=== PATIENT | female | born 1995 | race Caucasian/White ===

== ENCOUNTER 2016-03-31 11:01 | Emergency (ER) | payer BC ==
[2016-03-31 11:45] VITALS: BP 129/74
--- NOTE | 2016-03-31 12:08 | UC ---
UC General HPI - HPI Summary HPI Summary: cough, congestion for about three weeks. she has pulmicort at home but has not been using albuterol. no fevers but she has had chills. she has hx of asthma. cough is mainly dry. - History of Current Complaint Chief Complaint: UCRespiratory Stated Complaint: COUGH,CHEST CONGESTION Time Seen by Provider: 03/31/16 11:49 Hx Obtained From: Patient Onset/Duration: Gradual Onset, Lasting Weeks Timing: Constant Onset Severity: Moderate Current Severity: Moderate - Allergy/Home Medications Allergies/Adverse Reactions: Allergies Allergy/AdvReac Type Severity Reaction Status Date / Time Erythromycin Allergy Rash Verified 03/31/16 11:45 Sulfamethoxazole Allergy Rash Verified 03/31/16 11:45 w/Trimethoprim [From ] Home Medications: Home Medications Sertraline* [Zoloft*] 50 mg PO DAILY 03/31/16 [History Confirmed 03/31/16] PMH/Surg Hx/FS Hx/Imm Hx Endocrine History Of: Denies: Diabetes Cardiovascular History Of: Denies: Hypertension, Congestive Heart Failure Respiratory History Of: Reports: Asthma GI/ History Of: Denies: Renal Disease - Surgical History Surgical History: Yes Surgery Procedure, Year, and Place: 2010 APPENDECTOMY - Family History Known Family History: Positive: Hypertension - Social History Alcohol Use: Rare Substance Use Type: None Smoking Status (MU): Never Smoked Tobacco Review of Systems Skin: Negative ENT: Negative Respiratory: Cough All Other Systems Reviewed And Are Negative: Yes Physical Exam Triage Information Reviewed: Yes Appearance: Well-Appearing, No Pain Distress, Well-Nourished Vital Signs: Initial Vital Signs Temp 98.3 F 03/31/16 11:41 Pulse 75 03/31/16 11:41 Resp 16 03/31/16 11:41 BP 129/74 03/31/16 11:41 Pulse Ox 100 03/31/16 11:41 Vital Signs Reviewed: Yes Eye Exam: Normal Eyes: Positive: Conjunctiva Clear ENT Exam: Normal Dental Exam: Normal Neck exam: Normal Neck: Positive: Supple, Nontender, No Lymphadenopathy Respiratory Exam: Normal Respiratory: Positive: Lungs clear, Normal breath sounds, No respiratory distress, Respiratory distress, Decreased breath sounds, Accessory muscle use, Expiration - prolonged expirator phase.. Negative: Crackles, Rhonchi, Stridor, Wheezing Cardiovascular: Positive: RRR, No Murmur, Pulses Normal, Brisk Capillary Refill. Negative: Tachycardia, Bradycardia Abdominal Exam: Normal Abdomen Description: Positive: Nontender Musculoskeletal Exam: Normal Musculoskeletal: Positive: Strength Intact Neurological Exam: Normal Neurological: Positive: Alert, Muscle Tone Normal. Negative: Lethargic, Unresponsive Psychological Exam: Normal Skin Exam: Normal Course/Dx - Course Course Of Treatment: prolonged bronchitis in [place] patient with hx of asthma. we will try z pack, prednisone, albuterol, spacer and otc cough and decongestant. no signs of PE or pneumonia. no resp distress. she will rtc or f/ u with pcp for any worsening. - Differential Dx - Multi-Symptom Differential Diagnoses: Aspiration, Cardiac Ischemia, Closed Cranial Trauma, CVA , Metabolic Abnormality Provider Diagnoses: uri, bronchitis. Discharge - Discharge Plan Condition: Stable Disposition: HOME Referrals: Matt Fink MD [Primary Care Provider] - If Needed
== END 2016-03-31 12:26 | disposition home or self-care (01) ==
LOC: UCCORT 11:01
DX: J06.9 Acute upper respiratory infection, unspecified (principal); J40 Bronchitis, not specified as acute or chronic; J45.909 Unspecified asthma, uncomplicated; Z88.2 Allergy status to sulfonamides; Z88.3 Allergy status to other anti-infective agents
CPT/HCPCS: 99212; G0463

== ENCOUNTER 2016-09-13 11:57 | Emergency (ER) | payer BC ==
[2016-09-13 13:14] VITALS: BP 109/73
--- NOTE | 2016-09-13 13:40 | UC ---
Throat Pain/Nasal Art HPI - HPI Summary HPI Summary: 20 female presents with complaints of sore throat, fever, body aches and fatigue that began 3 days ago and has been worsening. 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 Has been taking Tylenol with last dose being this morning around 8am that gives her some relief. States she took her temperature orally last night and it was 101F. Denies any other complaints at this time. Denies PMHx. Never previously tested or diagnosed with mono. - History of Current Complaint Chief Complaint: UCGeneralIllness Stated Complaint: THROAT Time Seen by Provider: 09/13/16 12:58 Hx Obtained From: Patient Hx Last Menstrual Period: IUD ?: No Onset/Duration: Sudden Onset, Lasting Days - 3, Worse Since Severity: Moderate Pain Intensity: 7 Pain Scale Used: 0-10 Numeric Cough: None Associated Signs & Symptoms: Positive: Dysphagia, Fever - Epiglottits Risk Factors Epiglottis Risk Factors: Negative - Allergies/Home Medications Allergies/Adverse Reactions: Allergies Allergy/AdvReac Type Severity Reaction Status Date / Time Erythromycin Allergy Rash Verified 09/13/16 13:06 Sulfamethoxazole Allergy Rash Verified 09/13/16 13:06 w/Trimethoprim [From ] Home Medications: Home Medications Venlafaxine ER (NF) [Effexor ER (NF)] 150 mg PO DAILY 09/13/16 [History Confirmed 09/13/16] cloNIDine TAB* [Catapres 0.1 MG TAB*] 1 tab BEDTIME PRN 09/13/16 [History Confirmed 09/13/16] PMH/Surg Hx/FS Hx/Imm Hx - Additional Past Medical History Additional PMH: Denies diabetes, htn and asthma. Taking venlafaxine Psychological History: Anxiety - Surgical History Surgical History: Yes Surgery Procedure, Year, and Place: 2010 APPENDECTOMY - Family History Known Family History: Positive: Hypertension - Social History Alcohol Use: None Substance Use Type: None Smoking Status (MU): Never Smoked Tobacco - Immunization History Most Recent Influenza Vaccination: 2015 Most Recent Tetanus Shot: UTD Most Recent Pneumonia Vaccination: N/A Vaccination Up to Date: Yes Review of Systems Constitutional: Fever, Chills, Fatigue Skin: Negative ENT: Ear Ache Respiratory: Negative Cardiovascular: Negative Gastrointestinal: Negative Musculoskeletal: Myalgia Neurological: Headache All Other Systems Reviewed And Are Negative: Yes Physical Exam Triage Information Reviewed: Yes Appearance: No Pain Distress, Well-Nourished, Ill-Appearing Vital Signs: Initial Vital Signs Temp 97.4 F 09/13/16 13:09 Pulse 110 09/13/16 13:09 Resp 18 09/13/16 13:09 BP 109/73 09/13/16 13:09 Pulse Ox 97 09/13/16 13:09 tachycardia noted, afebrile however patient has been experiencing symptoms x3days and is currently taking tylenol Vital Signs Reviewed: Yes Eyes: Positive: Conjunctiva Clear ENT: Positive: Hearing grossly normal, Pharyngeal erythema, TMs normal, Tonsillar swelling, Tonsillar exudate, Other: - airway patent, no sign of peritonsillar abscess, no concern for epiglottits. Negative: Nasal congestion, Trismus, Muffled/hoarse voice Dental: Positive: Cervical Lymphadenopathy - b/l Neck: Positive: Supple, Nontender Respiratory: Positive: Chest non-tender, Lungs clear, Normal breath sounds, No respiratory distress, No accessory muscle use. Negative: Decreased breath sounds, Crackles, Wheezing Cardiovascular: Positive: RRR, No Murmur, Pulses Normal Abdomen Description: Positive: Nontender, Soft Bowel Sounds: Positive: Present Musculoskeletal: Positive: Strength Intact, ROM Intact Neurological Exam: Normal Psychological Exam: Normal Skin Exam: Normal Throat Pain/Nasal Course/Dx - Course Course Of Treatment: strep obtained and negative. however due to patients PE findings and HPI and according to centor criteria treated with amoxicillin. continue tylenol. fluids and rest. follow up pcp. monospot obtained, pending results. aware of worsening signs and symptoms. - Differential Dx/Diagnosis Differential Diagnosis/HQI/PQRI: Mononucleosis, Otitis Media, Pharyngitis, Tonsillitis, URI Provider Diagnoses: pharyngitis Discharge - Discharge Plan Condition: Stable Disposition: HOME Prescriptions: Amoxicillin CAP* [Amoxicillin 500 MG CAP*] 500 mg PO Q12H #20 cap Patient Education Materials: Pharyngitis (ED) Forms: *Work Release Referrals: Matt Fink MD [Primary Care Provider] - Additional Instructions: Take prescribed antibiotic as directed until entire dose is finished unless otherwise directed. You will hear mono results once received. Continue tylenol for pain and fever. Drink plenty of fluids, get plenty of rest, chloraseptic spray and gargle with salt water. Wash hands frequently. Follow up with PCP. Return if symptoms worsen or do not improve.
[2016-09-13 18:40] LABS: EBV Response YES
[2016-09-13 20:26] LABS: Mono Internal Control QC Line Present
[2016-09-13 20:27] LABS: Manual Entry Verification MD
== END 2016-09-13 14:08 | disposition home or self-care (01) ==
LOC: UCCORT 11:57
DX: J02.9 Acute pharyngitis, unspecified (principal); M79.1 Myalgia; R50.9 Fever, unspecified; R53.83 Other fatigue; Z88.1 Allergy status to other antibiotic agents; Z88.2 Allergy status to sulfonamides; F41.9 Anxiety disorder, unspecified
CPT/HCPCS: 36415; 86308; 86664; 86665; 87651; 99212; G0463

== ENCOUNTER 2017-01-26 09:20 | Emergency (ER) | payer BC ==
[2017-01-26 09:36] VITALS: BP 122/65
--- NOTE | 2017-01-26 09:55 | UC ---
Eye Complaint HPI - HPI Summary HPI Summary: pink eye bilateral x 1 day cold sx, with nasal congestion , cough x 5 days no fever, no chills + eye discharge and redness, no eye pain ,no change in vision , had her contacts over night - History of Current Complaint Chief Complaint: UCEye Stated Complaint: EYE COMPLAINT BOTH Time Seen by Provider: 01/26/17 09:45 Hx Obtained From: Patient Hx Last Menstrual Period: IUD Onset/Duration: Gradual Onset, Lasting Days - 1, Still Present Timing: Constant Severity Initially: Moderate Severity Currently: Moderate Location of Injury: Conjunctiva Aggravating Factor(s): Contact Lens Alleviating Factor(s): Nothing Associated Signs And Symptoms: Positive: Drainage (Clear), Drainage (Purulent). Negative: Photophobia, Vision Impairment Bilateral, Vision Impairment Right, Vision Impairment Left, Fever, Swelling - Allergies/Home Medications Allergies/Adverse Reactions: Allergies Allergy/AdvReac Type Severity Reaction Status Date / Time Erythromycin Allergy Rash Verified 01/26/17 09:36 Sulfamethoxazole Allergy Rash Verified 01/26/17 09:36 w/Trimethoprim [From ] PMH/Surg Hx/FS Hx/Imm Hx Previously Healthy: Yes - Surgical History Surgical History: Yes Surgery Procedure, Year, and Place: 2010 APPENDECTOMY - Family History Known Family History: Positive: Hypertension - Social History Alcohol Use: None Substance Use Type: None Smoking Status (MU): Never Smoked Tobacco - Immunization History Most Recent Influenza Vaccination: 2015 Most Recent Tetanus Shot: UTD Most Recent Pneumonia Vaccination: N/A Vaccination Up to Date: Yes Review of Systems Constitutional: Negative Skin: Negative Eyes: Drainage, Eye Redness ENT: Nasal Discharge Respiratory: Negative Cardiovascular: Negative Gastrointestinal: Negative Is Patient Immunocompromised?: No All Other Systems Reviewed And Are Negative: Yes Physical Exam Triage Information Reviewed: Yes Appearance: Well-Appearing, No Pain Distress, Well-Nourished Vital Signs: Initial Vital Signs Temp 98.2 F 01/26/17 09:31 Pulse 81 01/26/17 09:31 Resp 20 01/26/17 09:31 BP 122/65 01/26/17 09:31 Vital Signs Reviewed: Yes Eyes: Positive: Conjunctiva Inflamed - bilateral, Discharge - bilateral ENT: Positive: Normal ENT inspection, Hearing grossly normal, Pharynx normal, Pharyngeal erythema, Nasal congestion, TMs normal. Negative: Nasal drainage Neck: Positive: Supple, Nontender, No Lymphadenopathy Respiratory: Positive: Chest non-tender, Lungs clear, Normal breath sounds Cardiovascular Exam: Normal Cardiovascular: Positive: RRR, No Murmur, Pulses Normal Eye Complaint Course/Dx - Differential Dx/Diagnosis Provider Diagnoses: conjunctivitis bilateral Discharge - Discharge Plan Condition: Stable Disposition: HOME Prescriptions: Ciprofloxacin 0.3% OPTH.LORE* [Cipro 0.3% Opth*] 1 drop BOTH EYES Q2H #1 btl Patient Education Materials: Conjunctivitis (ED) Referrals: Matt Fink MD [Primary Care Provider] - 7 Days
== END 2017-01-26 09:53 | disposition home or self-care (01) ==
LOC: UCCORT 09:20
DX: H10.33 Unspecified acute conjunctivitis, bilateral (principal); Z88.1 Allergy status to other antibiotic agents; Z88.2 Allergy status to sulfonamides
CPT/HCPCS: 99212; G0463

== ENCOUNTER 2017-02-09 14:03 | Emergency (ER) | payer BC ==
[2017-02-09 14:13] VITALS: BP 108/72
--- NOTE | 2017-02-09 14:15 | UC ---
Eye Complaint HPI - HPI Summary HPI Summary: 21 y/o female presents to the urgent care c/o B/L redness with yellowish eye discharge since yesterday. Pt reports she has Dx with B/L conjunctivitis on 01/26/2017, Rx Ciprofloxacin, her eyes were completely clear for a couple of days. Yesterday she woke up with yellowish crusting d/c. She still with nasal congestion and mild cold symptoms and B/L ear pressure. Pt denies fever, cough , SOB, chest pain, N/V/D - History of Current Complaint Chief Complaint: UCEye Stated Complaint: BILATERAL EYE Time Seen by Provider: 02/09/17 14:13 Hx Obtained From: Patient Hx Last Menstrual Period: unknown, guerita IUD ?: No Onset/Duration: Gradual Onset, Lasting Days - 2 days, Still Present Timing: Constant Severity Initially: Mild Severity Currently: Mild Pain Intensity: 0 Pain Scale Used: 0-10 Numeric Location of Injury: Conjunctiva - B/L redness with yellowish eye discharge Character: Foreign Body Sensation Aggravating Factor(s): Blinking Alleviating Factor(s): Eye Drops Associated Signs And Symptoms: Positive: Drainage (Purulent). Negative: Fever, Swelling Related History: Similar Episode - 01/26/2017 - Risk Factors Penetrating Injury Risk Factor: Negative Globe Rupture Risk Factors: Negative Acute Glaucoma Risk Factors: Negative Optic Artery Occlusion Risk Factors: Negative - Allergies/Home Medications Allergies/Adverse Reactions: Allergies Allergy/AdvReac Type Severity Reaction Status Date / Time Erythromycin Allergy Rash Verified 02/09/17 14:13 Sulfamethoxazole Allergy Rash Verified 02/09/17 14:13 w/Trimethoprim [From ] PMH/Surg Hx/FS Hx/Imm Hx Previously Healthy: Yes Respiratory History: Asthma - Surgical History Surgical History: Yes Surgery Procedure, Year, and Place: 2010 APPENDECTOMY - Family History Known Family History: Positive: Hypertension, Diabetes - Social History Occupation: Student Lives: With Family Alcohol Use: None Substance Use Type: None Smoking Status (MU): Never Smoked Tobacco - Immunization History Most Recent Influenza Vaccination: no Most Recent Tetanus Shot: UTD Most Recent Pneumonia Vaccination: N/A Vaccination Up to Date: Yes Review of Systems Constitutional: Negative Skin: Negative Eyes: Eye Redness - B/L with yellowish eye discharge ENT: Ear Ache - B/L ear pressure, Nasal Discharge Respiratory: Negative Cardiovascular: Negative Gastrointestinal: Negative Genitourinary: Negative Motor: Negative Neurovascular: Negative Musculoskeletal: Negative Neurological: Negative Psychological: Negative Is Patient Immunocompromised?: No All Other Systems Reviewed And Are Negative: Yes Physical Exam Triage Information Reviewed: Yes Vital Signs: Initial Vital Signs Temp 98.6 F 02/09/17 14:07 Pulse 78 02/09/17 14:07 Resp 14 02/09/17 14:07 BP 108/72 02/09/17 14:07 Pulse Ox 98 02/09/17 14:07 - Additional Comments Vital Signs Reviewed: Yes General: Well appearing, well nourished adolescent in no apparent pain distress Eyes: Positive: Conjunctiva Inflamed - Visual acuity: WNL,Visual stone: full to confrontation.B/L conjunctiva injected with erythema and yellowish crusting eye discharge in the eye lashes. no periorbital soft tissue swelling , no tenderness to palpation. PERRLA, EOMI intact w/out limitation or complaint of pain. mild tearing and yellowish drainage observed. No ciliary flush. No chemosis, No photophobia. Normal fundoscopic exam; no proptosis, exophthalmos, nystagmus. ENT: Positive: Normal ENT inspection, Hearing grossly normal, Pharynx normal, Nasal congestion, Nasal drainage - B/L external ear canal impacted with cerumen unable to visualize TM's . Negative: Tonsillar swelling, Tonsillar exudate Neck: Positive: Supple, Nontender, No Lymphadenopathy Respiratory: Positive: Chest nontender, Lungs clear, Normal breath sounds, No respiratory distress Cardiovascular: Positive: RRR, No Murmur, Pulses Normal, Brisk Capillary Refill Abdomen Description: Positive: Nontender, No Organomegaly, Soft. Negative: CVA Tenderness (R), CVA Tenderness (L) Bowel Sounds: Positive: Present Musculoskeletal: Positive: Strength Intact, ROM Intact, No Edema Neurological Exam: Normal Psychological Exam: Normal Skin Exam: Normal Eye Complaint Course/Dx - Course Course Of Treatment: 21 y/o female presents to the urgent care c/o B/L redness with yellowish eye discharge since yesterday. Pt reports she has Dx with B/L conjunctivitis on 01/26/2017, Rx Ciprofloxacin, her eyes were completely clear for a couple of days. Yesterday she woke up with yellowish crusting d/c. She still with nasal congestion and mild cold symptoms and B/L ear pressure. Pt denies fever, cough, SOB, chest pain, N/V/D. Hx obtained. Pt with B/L bacterial conjunctivitis and B/L exteranl ear canals with cerumen impaction and URI on examination. B/L ears irrigation ordered. RT external ear canal clear after irrigation. Lf erternal ear still with hard black cerumen, Decusate liq 5 drops ordere to soften cerumen and ear irrigation tried again by Nurse. No succes with irri - Differential Dx/Diagnosis Differential Diagnosis/HQI/PQRI: Conjunctivitis, Corneal Abrasion, Orbital Cellulitis, Other - sinustitis, URI, pharyngitis, cerumen impaction Provider Diagnoses: 1- B/L bacterial conjunctivitis. 2-B/L ears with cerumen impaction. 3- URI Discharge - Discharge Plan Condition: Stable Disposition: HOME Prescriptions: Carbamide Peroxide 6.5% OTIC* [DEBROX 6.5% Otic*] 5 drop LEFT EAR BID #1 bottle Tobramycin/Dexameth OPTH.SUSP* [Tobradex 0.3-0.1%*] 1 drop BOTH EYES Q4H #1 btl Patient Education Materials: Cerumen Impaction (ED), Conjunctivitis (ED) Referrals: Wong Owens MD [Medical Doctor] - If Needed Matt Fink MD [Primary Care Provider] - If Needed Mc Abdalla MD [Medical Doctor] - If Needed Additional Instructions: 1-Please apply ophthalmic ointment as instructed and finish the full course of treatment to avoid recurrent infection. 2-If you do not improve or if symptoms worsen please f/u with spine surgeon for further evaluation and treatment 3- Apply otic drops in the left ear as directed to soften cerumen. If nothing comes out please f/u with PCP or ENT for further management.
[2017-02-09] MEDS ORDERED: Docusate LIQ* 100 MG/10 ML UDC ONE ×2 (15:16→15:18)
[2017-02-09] MEDS ORDERED: Docusate LIQ* 100 MG/10 ML UDC OTIC ONE (15:22)
[2017-02-10] MEDS ORDERED: Docusate LIQ* 100 MG/10 ML UDC PO ONE (15:12)
== END 2017-02-09 15:48 | disposition home or self-care (01) ==
LOC: UCCORT 14:03
DX: H10.33 Unspecified acute conjunctivitis, bilateral (principal); H61.23 Impacted cerumen, bilateral; J06.9 Acute upper respiratory infection, unspecified; J45.909 Unspecified asthma, uncomplicated; Z88.1 Allergy status to other antibiotic agents; Z88.2 Allergy status to sulfonamides; Z90.89 Acquired absence of other organs
CPT/HCPCS: 99213; A9270-GY; G0463

== ENCOUNTER 2017-06-25 18:44 | Emergency (ER) | payer BC ==
--- NOTE | 2017-06-25 19:48 | ED ---
Abdominal Pain/Female - HPI Summary HPI Summary: Pt presents to ED with n/v starting 1 hour following eating [employer] for lunch. Pt then developed diarrhea. Pt states vomit queen - non-bloody, no- blacl. pt states abdominal cramping. no analgesia taken. no fever, chills. no jacques , vision changes. Pt denies dysuria, hematuria, No rash. No other complaints pt's medication reviewed this visit - History of Current Complaint Chief Complaint: UCAbdominalPain Stated Complaint: STOMACH ACHE,VOMITING,DIARRHEA Time Seen by Provider: 06/25/17 19:33 Hx Obtained From: Patient Hx Last Menstrual Period: 2 WKS AGO Onset/Duration: Sudden Onset Timing: Intermittent Episode Lasting Severity Initially: Moderate Pain Intensity: 5 Pain Scale Used: 0-10 Numeric Location: Diffuse, Epigastric Radiates: No Character: Sharp, Cramping Aggravating Factor(s): Nothing Alleviating Factor(s): Vomiting, Bowel Movement Associated Signs and Symptoms: Positive: Nausea, Vomiting, Diarrhea Allergies/Adverse Reactions: Allergies Allergy/AdvReac Type Severity Reaction Status Date / Time erythromycin base Allergy Rash Verified 06/25/17 19:12 sulfamethoxazole Allergy Rash Verified 06/25/17 19:12 [From ] trimethoprim [From ] Allergy Rash Verified 06/25/17 19:12 Home Medications: Home Medications Albuterol HFA INHALER* [Ventolin HFA Inhaler*] 2 puff INH Q4H PRN 06/25/17 [ History Confirmed 06/25/17] PMH/Surg Hx/FS Hx/Imm Hx Previously Healthy: Yes Endocrine/Hematology History: Denies: Hx Diabetes, Hx Systemic Lupus Erythematosus Cardiovascular History: Denies: Hx Congestive Heart Failure, Hx Hypertension Respiratory History: Reports: Hx Asthma History: Denies: Hx Dialysis, Hx Renal Disease Musculoskeletal History: Denies: Hx Rheumatoid Arthritis - Cancer History Hx Chemotherapy: No - Surgical History Surgery Procedure, Year, and Place: 2010 APPENDECTOMY Infectious Disease History: No Infectious Disease History: Denies: Traveled Outside the [place] in Last 30 Days - Family History Known Family History: Positive: Hypertension, Diabetes - Social History Occupation: Employed Full-time Lives: Alone Alcohol Use: Rare Substance Use Type: Reports: None Smoking Status (MU): Never Smoked Tobacco Review of Systems Constitutional: Negative Eyes: Negative Positive: Abdominal Pain, Vomiting, Diarrhea, Nausea All Other Systems Reviewed And Are Negative: Yes Physical Exam Triage Information Reviewed: Yes Vital Signs On Initial Exam: Initial Vitals Temp Pulse Resp BP Pulse Ox 98.5 F 75 16 110/75 99 06/25/17 19:16 06/25/17 19:16 06/25/17 19:16 06/25/17 19:16 06/25/17 19:16 Vital Signs Reviewed: Yes Appearance: Positive: Well-Nourished. Negative: No Pain Distress - active vomiting and diarrhea in ED Skin: Positive: Warm, Skin Color Reflects Adequate Perfusion, Dry Head/Face: Positive: Normal Head/Face Inspection Eyes: Positive: Normal, EOMI, VASILIY ENT: Positive: TMs normal, Other - lips dry, mmmoist Neck: Positive: Supple, Nontender, No Lymphadenopathy Respiratory/Lung Sounds: Positive: Clear to Auscultation, Breath Sounds Present , Decreased Breath Sounds Cardiovascular: Positive: Normal, RRR. Negative: Murmur Abdomen Description: Positive: Soft. Negative: Nontender - soft + BS-hyper mild diffuse tenderness, no guarding, no rebound Bowel Sounds: Positive: Hyperactive Musculoskeletal: Positive: Normal Neurological: Positive: Normal, Sensory/Motor Intact, Alert, Oriented to Person Place, Time Psychiatric: Positive: Normal AVPU Assessment: Alert - [place] Coma Scale Best Eye Response: 4 - Spontaneous Best Motor Response: 6 - Obeys Commands Best Verbal Response: 5 - Oriented Coma Scale Total: 15 Diagnostics - Vital Signs Vital Signs Temp Pulse Resp BP Pulse Ox 06/25/17 19:16 98.5 F 75 16 110/75 99 - Laboratory Lab Statement: Any lab studies that have been ordered have been reviewed, and results considered in the medical decision making process. Re-Evaluation - Re-Evaluation First Eval Re-Evaluation Time: 20:42 Comment: pt continues with nausea, slight improvement. pt with cramping abdominal pain. spoke with mom by phone. will give IVF, toradol, zofran. pt in agreement Second Eval Re-Evaluation Time: 21:41 Change: Improved Comment: Pt feeling better. no nausea eating ice chips. Will d/c with Rx zofran and 2 tabs. motrin/apap. clears to bland. return precautiins Abdominal Pain Fem Course/Dx - Course Course Of Treatment: Pt with sudden development of n/v with rapid progression of diarrhea following a meal. 3 co-workers with similar sx. Pt with vomit and diarrhea in UC. offered IVF to pt - declined at this time. Will give zofran and ice chips. reassess - Diagnoses Provider Diagnoses: Nausea & vomiting, Diarrhea Discharge - Sign-Out/Discharge Documenting (check all that apply): Discharge - Discharge Plan Condition: Stable Disposition: HOME Prescriptions: Ondansetron ODT TAB* [Zofran 4 MG Odt TAB*] 4 mg PO Q6H PRN #10 tab.odt PRN Reason: Nausea Patient Education Materials: Acute Nausea and Vomiting (ED), Acute Diarrhea (ED ) Forms: *Work Release Referrals: Matt Fink MD [Primary Care Provider] - Additional Instructions: - For the first 6 hours, eat and drink clears (water, [place], soup broth, jello, popsicles, Gatorade). If you tolerate this okay, add bland foods such as dry toast, scrambled eggs, crackers. Wait until you are feeling better for 24 hours before eating spicy food, acidic food, tomato based food, fried food. - okay to take medications as prescribed for nausea - if you have increased or uncontrolled abdominal pain, it is recommended you go to the emergency department for further evaluation and treatment - Billing Disposition and Condition Condition: STABLE Disposition: HOME
[2017-06-25] MEDS ORDERED: Ondansetron ODT TAB* 4 MG PO ONE ×2 (19:53→21:11)
[2017-06-25] MEDS ORDERED: Ondansetron INJ* 2 MG/ML VIAL IV ONE (20:40)
[2017-06-25] MEDS ORDERED: Ketorolac INJ* 30 MG/ML 1 ML VIAL IV PUSH ONE (20:40)
[2017-06-25] MEDS ORDERED: NS 0.9% 1000 ML* 1,000 ML IV ONE (20:40)
[2017-06-25 22:10] VITALS: BP 130/77
== END 2017-06-25 22:10 | disposition home or self-care (01) ==
LOC: UCCORT 18:44
DX: R11.2 Nausea with vomiting, unspecified (principal); R19.7 Diarrhea, unspecified; Z88.3 Allergy status to other anti-infective agents; Z88.8 Allergy status to other drugs, medicaments and biological substances
CPT/HCPCS: 96361; 96374; 96375; 99213; A9270-GY; G0463; J1885; J2405

== ENCOUNTER 2017-11-05 11:12 | Emergency (ER) | payer BC ==
[2017-11-05 11:54] VITALS: BP 121/75
--- NOTE | 2017-11-05 12:18 | UC ---
Respiratory Complaint HPI - HPI Summary HPI Summary: 22 year old female presents with 5-6 day history of progressively worsening URI symptoms. She reports initially developed some nausea, vomiting, and diarrhea about 1 week ago while on vacation in [place]. These symptoms resolved after about 3 days however she then began developing nasal congestion, sinus pain and pressure, mild sore throat, and non-productive cough. Reports onset of low grade fever last night and this morning (100 F). Last night was having difficulty breathing especially when she tried to lie down. Has history of asthma however is currently out of her albuterol inhaler. - History of Current Complaint Chief Complaint: UCGeneralIllness Stated Complaint: CONGESTION Time Seen by Provider: 11/05/17 11:58 Hx Obtained From: Patient Hx Last Menstrual Period: last week ?: No - LMP 1 week ago. Currently not sexually active. Onset/Duration: Gradual Onset Timing: Constant Severity Initially: Mild Severity Currently: Moderate Pain Intensity: 4 Aggravating Factors: Nothing Alleviating Factors: Nothing Associated Signs And Symptoms: Positive: Dyspnea, Fever, URI, Nasal Congestion, Sinus Discomfort. Negative: Pleuritic Chest Pain, Hemoptysis, Calf Pain, Calf Swelling - Risk Factors Pulmonary Embolism Risk Factors: Negative - Allergies/Home Medications Allergies/Adverse Reactions: Allergies Allergy/AdvReac Type Severity Reaction Status Date / Time erythromycin base Allergy Rash Verified 11/05/17 11:44 sulfamethoxazole Allergy Rash Verified 11/05/17 11:44 [From ] trimethoprim [From ] Allergy Rash Verified 11/05/17 11:44 Home Medications: Home Medications Benzonatate CAP* [Tessalon 100 MG CAP*] 100 mg PO BID PRN 11/05/17 [History Confirmed 11/05/17] Decongestant 1 tab PO DAILY PRN 11/05/17 [History Confirmed 11/05/17] Dm/PE/Acetaminophen/Doxylamine [Daytime-Nighttime Cold-Flu] 2 each PO BID PRN [History Confirmed 11/05/17] Ibuprofen TAB* [Advil TAB*] 600 mg PO Q6H PRN 11/05/17 [History Confirmed ] PMH/Surg Hx/FS Hx/Imm Hx Previously Healthy: Yes Respiratory History: Asthma - Surgical History Surgical History: Yes Surgery Procedure, Year, and Place: 2010 APPENDECTOMY - Family History Known Family History: Positive: Hypertension, Diabetes - Social History Occupation: Employed Full-time - [employer] Work[employer] Lives: With Family Alcohol Use: Rare Substance Use Type: None Smoking Status (MU): Never Smoked Tobacco - Immunization History Most Recent Influenza Vaccination: no Most Recent Tetanus Shot: UTD Most Recent Pneumonia Vaccination: N/A Vaccination Up to Date: Yes Review of Systems Constitutional: Fever, Fatigue Skin: Negative Eyes: Negative ENT: Sore Throat, Nasal Discharge, Sinus Congestion, Sinus Pain/Tenderness Respiratory: Shortness Of Breath, Cough Cardiovascular: Negative Gastrointestinal: Negative Is Patient Immunocompromised?: No All Other Systems Reviewed And Are Negative: Yes Physical Exam Triage Information Reviewed: Yes Appearance: Well-Appearing, No Pain Distress, Well-Nourished Vital Signs: Initial Vital Signs Temp 98.7 F 11/05/17 11:48 Pulse 68 11/05/17 11:48 Resp 14 11/05/17 11:48 BP 121/75 11/05/17 11:48 Pulse Ox 98 11/05/17 11:48 Vital Signs Reviewed: Yes Eyes: Positive: Conjunctiva Clear ENT: Positive: Pharyngeal erythema - Mild with cobblestoning., Nasal congestion , Nasal drainage, TMs normal, Sinus tenderness - Maxillary, Uvula midline. Negative: Tonsillar swelling, Tonsillar exudate Neck: Positive: Supple, Nontender, No Lymphadenopathy Respiratory: Positive: No respiratory distress, No accessory muscle use, Wheezing - Mild expiratory wheeze MARVA Cardiovascular: Positive: RRR, No Murmur, Pulses Normal Skin Exam: Normal UC Diagnostic Evaluation - Laboratory O2 Sat by Pulse Oximetry: 98 Respiratory Course/Dx - Course Course Of Treatment: 22 year old female presents with 5-6 day history of progressively worsening URI symptoms. She initially had some nausea, vomiting, and diarrhea about 1 week ago while on vacation. These symptoms resolved however began developing nasal congestion, sinus pain and pressure, mild sore throat, and non-productive cough. Reports low grade fever last night and this morning (100 F). Difficulty breathing especially while lying down. Has hx of asthma however is out of her albuterol inhaler. Will treat for acute URI with 7 day course of doxycycline especially in light of her underlying asthma. Recommend saline rinses, fluticasone nasal spray, and OTC Sudafed for nasal/ sinus congestion. Probiotics while on antibiotics. I will renew her albuterol inhaler. Follow up with PCP in 5 days if no improvement. - Differential Dx/Diagnosis Differential Diagnosis/HQI/PQRI: Asthma, Bronchitis, Lower Resp Infection, Sinusitis Provider Diagnoses: Acute URI, Mild intermittent asthma Discharge - Sign-Out/Discharge Documenting (check all that apply): Patient Departure - Discharge Plan Condition: Stable Disposition: HOME Prescriptions: Albuterol HFA INHALER* [Ventolin HFA Inhaler*] 2 puff INH Q4H PRN #1 mdi PRN Reason: Shortness Of Breath DOXYcycline CAP(*) [DOXYcycline 100MG CAP(*)] 100 mg PO BID #14 cap Fluticasone NASAL SPRAY 50MCG* [Flonase NASAL SPRAY 50MCG*] 2 spray BOTH NARES DAILY #1 btl Patient Education Materials: Asthma (ED), Upper Respiratory Infection (ED) Forms: *Work Release Referrals: Matt Fink MD [Primary Care Provider] - 5 Days (If no improvement.) Additional Instructions: Start doxycycline 1 cap twice daily for 7 days. Be sure to finish the entire course even if you are feeling better. Take a probiotic or eat a cup of yogurt every day while on the antibiotic to help prevent gastrontestinal side effects of the antibiotic. Use fluticasone (Flonase) nasal spray 2 sprays each nostril once daily. Use saline irrigation such as Neti Pot twice daily to help thin secretions and promote drainage. Take over the counter Sudafed according to directions as needed for sinus pain and pressure. Use over the counter acetaminophen (Tylenol) or ibuprofen (Advil, Motrin) according to directions as needed for pain or fever. Use your albuterol inhaler 2 puffs every 4-6 hours as needed for shortness of breath, wheezing, or coughing fits. Follow up with your primary care provider in 5 days if no improvement. - Billing Disposition and Condition Condition: STABLE Disposition: Home
== END 2017-11-05 12:37 | disposition home or self-care (01) ==
LOC: UCCORT 11:12
DX: J06.9 Acute upper respiratory infection, unspecified (principal); J45.909 Unspecified asthma, uncomplicated; Z88.1 Allergy status to other antibiotic agents
CPT/HCPCS: 99212; G0463

== ENCOUNTER 2018-10-08 15:20 | Emergency (ER) | payer OTHER ==
[2018-10-08 15:50] VITALS: BP 114/69
--- NOTE | 2018-10-08 16:28 | UC ---
Eye Complaint HPI - HPI Summary HPI Summary: 22-year-old female comes in with chief complaint of left eye irritation and drainage. Symptoms started today. Patient does have contacts. Left eye feels irritated but it's not painful. She is getting some yellow discharge - History of Current Complaint Chief Complaint: UCEye Stated Complaint: BILATERAL EYE ISSUE Time Seen by Provider: 10/08/18 16:17 Hx Last Menstrual Period: ~about a month ago Pain Intensity: 0 - Allergies/Home Medications Allergies/Adverse Reactions: Allergies Allergy/AdvReac Type Severity Reaction Status Date / Time erythromycin base Allergy Rash Verified 10/08/18 15:44 sulfamethoxazole Allergy Rash Verified 10/08/18 15:44 [From ] trimethoprim [From ] Allergy Rash Verified 10/08/18 15:44 Home Medications: Home Medications Ondansetron TAB* [Zofran 4 MG Tab*] 4 mg PO Q6H PRN 10/08/18 [History Confirmed 10/08/18] PMH/Surg Hx/FS Hx/Imm Hx Previously Healthy: Yes - Surgical History Surgical History: Yes Surgery Procedure, Year, and Place: 2010 APPENDECTOMY - Family History Known Family History: Positive: Hypertension, Diabetes - Social History Alcohol Use: Rare Substance Use Type: None Smoking Status (MU): Never Smoked Tobacco Type: eCigarettes Have You Smoked in the Last Year: No - Immunization History Most Recent Influenza Vaccination: no Most Recent Tetanus Shot: UTD Most Recent Pneumonia Vaccination: N/A Vaccination Up to Date: Yes Review of Systems All Other Systems Reviewed And Are Negative: Yes Constitutional: Positive: Negative Skin: Positive: Negative Eyes: Positive: Drainage, Eye Redness ENT: Positive: Negative Respiratory: Positive: Negative Cardiovascular: Positive: Negative Gastrointestinal: Positive: Negative Motor: Positive: Negative Neurovascular: Positive: Negative Musculoskeletal: Positive: Negative Neurological: Positive: Negative Psychological: Positive: Negative Is Patient Immunocompromised?: No Physical Exam Triage Information Reviewed: Yes Appearance: Well-Appearing, No Pain Distress, Well-Nourished Vital Signs: Initial Vital Signs Temp 98.1 F 10/08/18 15:45 Pulse 83 10/08/18 15:45 Resp 16 10/08/18 15:45 BP 114/69 10/08/18 15:45 Pulse Ox 100 10/08/18 15:45 Vital Signs Reviewed: Yes Eyes: Positive: Conjunctiva Inflamed - LEFT, Discharge - LEFT, Other: - PERRLA/ EOMI,NO FB SEEN,NO HYPHEMA ENT: Negative: Nasal congestion, Nasal drainage Neck: Positive: Supple Respiratory: Positive: No respiratory distress Musculoskeletal Exam: Normal Musculoskeletal: Positive: Strength Intact, ROM Intact Neurological Exam: Normal Neurological: Positive: Alert, Muscle Tone Normal Psychological Exam: Normal Psychological: Positive: Normal Response To Family, Age Appropriate Behavior Skin Exam: Normal Eye Complaint Course/Dx - Course Course Of Treatment: We discussed keeping her contact lenses out and discarding of this pair while taking the antibiotic drops. Patient is not this point contacts back in until completely healed up. Follow-up with ophthalmology if not improving. - Differential Dx/Diagnosis Provider Diagnosis: Conjunctivitis, left eye Discharge - Sign-Out/Discharge Documenting (check all that apply): Patient Departure All imaging exams completed and their final reports reviewed: No Studies - Discharge Plan Condition: Stable Disposition: HOME Prescriptions: Tobramycin 0.3% OPHTH.LORE* 1 drop LEFT EYE Q4H #1 btl Patient Education Materials: Conjunctivitis (ED) Forms: *Work Release Referrals: Matt Fink MD [Primary Care Provider] - Additional Instructions: FOLLOW UP WITH YOUR REGIONAL FACILITIES MANAGER IF NOT COMPLETELY IMPROVED. GET REEVALUATED SOONER IF WORSE OR ANY QUESTIONS OR CONCERNS. - Billing Disposition and Condition Condition: STABLE Disposition: Home
== END 2018-10-08 16:36 | disposition home or self-care (01) ==
LOC: UCCORT 15:20
DX: H10.9 Unspecified conjunctivitis (principal); F17.290 Nicotine dependence, other tobacco product, uncomplicated
CPT/HCPCS: 99212; G0463

== ENCOUNTER 2018-11-25 13:52 | Emergency (ER) | payer BC, OTHER ==
[2018-11-25 15:00] VITALS: BP 106/73
[2018-11-25] MEDS ORDERED: Ondansetron ODT TAB* 4 MG PO ONE (15:25)
--- NOTE | 2018-12-01 20:27 | UC ---
Abdominal Pain Female HPI - HPI Summary HPI Summary: Nausea, vomitting, upper abdominal pain, diarrhea, and hot/cold chills (but no fever) x3 days. Able to keep small amts of fluids/ice chips down, but not food. Last emesis today 1430. Tried pepto w/ no relief and unable to keep pepto down. - History of Current Complaint Chief Complaint: UCGI Stated Complaint: NAUSEA,CHILLS,VOMITTING,DIARRHEA X 3 DAYS Time Seen by Provider: 11/25/18 15:03 Hx Obtained From: Patient Hx Last Menstrual Period: 11/12/18 ?: No Pain Intensity: 7 Pain Scale Used: 0-10 Numeric Allergies/Adverse Reactions: Allergies Allergy/AdvReac Type Severity Reaction Status Date / Time erythromycin base Allergy Rash Verified 11/25/18 14:54 sulfamethoxazole Allergy Rash Verified 11/25/18 14:54 [From ] trimethoprim [From ] Allergy Rash Verified 11/25/18 14:54 PMH/Surg Hx/FS Hx/Imm Hx Previously Healthy: Yes - Surgical History Surgical History: Yes Surgery Procedure, Year, and Place: 2010 APPENDECTOMY - Family History Known Family History: Positive: Hypertension, Diabetes - Social History Alcohol Use: Rare Substance Use Type: None Smoking Status (MU): Current Every Day Smoker Type: eCigarettes Have You Smoked in the Last Year: No - Immunization History Most Recent Influenza Vaccination: no Most Recent Tetanus Shot: UTD Most Recent Pneumonia Vaccination: N/A Vaccination Up to Date: Yes Review of Systems All Other Systems Reviewed And Are Negative: Yes Constitutional: Positive: Chills, Fatigue Skin: Positive: Negative Eyes: Positive: Negative ENT: Positive: Negative Respiratory: Positive: Negative Gastrointestinal: Positive: Abdominal Pain Genitourinary: Positive: Negative Motor: Positive: Negative Neurovascular: Positive: Negative Musculoskeletal: Positive: Negative Neurological: Positive: Negative Psychological: Positive: Negative Is Patient Immunocompromised?: No Physical Exam Triage Information Reviewed: Yes Appearance: Well-Nourished, Ill-Appearing, Pain Distress Vital Signs: Initial Vital Signs Temp 98.2 F 11/25/18 14:55 Pulse 81 11/25/18 14:55 Resp 16 11/25/18 14:55 BP 106/73 11/25/18 14:55 Pulse Ox 98 11/25/18 14:55 Vital Signs Reviewed: Yes Eye Exam: Normal ENT Exam: Normal Dental Exam: Normal Neck exam: Normal Respiratory Exam: Normal Cardiovascular Exam: Normal Abdomen Description: Positive: Nontender, No Organomegaly, Soft, CVA Tenderness (R) - neg, CVA Tenderness (L) - neg Bowel Sounds: Positive: Present Musculoskeletal Exam: Normal Neurological Exam: Normal Psychological Exam: Normal Skin Exam: Normal Abd Pain Female Course/Dx - Course Course Of Treatment: hx obtained, exam performed ,meds reviewed, treated for gastroenteritis - Differential Dx/Diagnosis Differential Diagnosis: Constipation, Diverticulitis Provider Diagnosis: Gastroenteritis Discharge ED - Sign-Out/Discharge Documenting (check all that apply): Patient Departure All imaging exams completed and their final reports reviewed: No Studies - Discharge Plan Condition: Stable Disposition: HOME Prescriptions: Ondansetron ODT TAB* [Zofran 4 MG Odt TAB*] 4 mg PO Q8H PRN #12 tab.odt PRN Reason: Nausea Patient Education Materials: Gastroenteritis (ED) Forms: *Work Release Referrals: Matt Fink MD [Primary Care Provider] - Additional Instructions: 1. get plenty of rest 2. BLand diet 3. Use the zofran and increase fluids to prevent dehydration. 4. follow up if you develop any worsening symtpoms - Billing Disposition and Condition Condition: STABLE Disposition: Home
== END 2018-11-25 15:47 | disposition home or self-care (01) ==
LOC: UCCORT 13:52
DX: K52.9 Noninfective gastroenteritis and colitis, unspecified (principal); Z90.89 Acquired absence of other organs; Z88.1 Allergy status to other antibiotic agents; Z88.2 Allergy status to sulfonamides; F17.290 Nicotine dependence, other tobacco product, uncomplicated
CPT/HCPCS: 81003; 99212; A9270-GY; G0463

== ENCOUNTER 2019-03-04 10:46 | Emergency (ER) | payer BC ==
[2019-03-04 11:57] VITALS: BP 100/68
--- NOTE | 2019-03-04 12:12 | UC ---
Throat Pain/Nasal Art HPI - HPI Summary HPI Summary: sore throat x 1 day + chills, no fever, denies any cough or cold symptoms + vomiting multiple times yesterday , + abdominal cramps no diarrhea, - History of Current Complaint Chief Complaint: UCRespiratory Stated Complaint: ST/STOMACHE ACHE Time Seen by Provider: 03/04/19 11:55 Hx Obtained From: Patient Hx Last Menstrual Period: 02/07/19 Onset/Duration: Gradual Onset, Lasting Days - 1, Still Present Severity: Moderate Pain Intensity: 8 Cough: None Associated Signs & Symptoms: Negative: Wheezing, Hoarseness, Sinus Discomfort, Nasal Discharge, Fever, Vomiting, Rash - Allergies/Home Medications Allergies/Adverse Reactions: Allergies Allergy/AdvReac Type Severity Reaction Status Date / Time erythromycin base Allergy Rash Verified 03/04/19 11:52 sulfamethoxazole Allergy Rash Verified 03/04/19 11:52 [From ] trimethoprim [From ] Allergy Rash Verified 03/04/19 11:52 PMH/Surg Hx/FS Hx/Imm Hx Previously Healthy: Yes - Surgical History Surgical History: Yes Surgery Procedure, Year, and Place: 2010 APPENDECTOMY - Family History Known Family History: Positive: Hypertension, Diabetes - Social History Alcohol Use: Rare Substance Use Type: None Smoking Status (MU): Former Smoker Type: eCigarettes Have You Smoked in the Last Year: No When Did the Patient Quit Smoking/Using Tobacco: 2018 - Immunization History Most Recent Influenza Vaccination: no Most Recent Tetanus Shot: UTD Most Recent Pneumonia Vaccination: N/A Vaccination Up to Date: Yes Review of Systems All Other Systems Reviewed And Are Negative: Yes Constitutional: Positive: Chills, Fatigue Skin: Positive: Negative Eyes: Positive: Negative ENT: Positive: Sore Throat. Negative: Nasal Discharge, Sinus Congestion, Sinus Pain/Tenderness Respiratory: Negative: Cough Cardiovascular: Negative: Negative Gastrointestinal: Positive: Abdominal Pain, Vomiting, Nausea. Negative: Diarrhea Genitourinary: Positive: Negative Is Patient Immunocompromised?: No Physical Exam Triage Information Reviewed: Yes Appearance: Well-Appearing, Well-Nourished Vital Signs: Initial Vital Signs Temp 98.3 F 03/04/19 11:53 Pulse 60 03/04/19 11:53 Resp 15 03/04/19 11:53 BP 100/68 03/04/19 11:53 Pulse Ox 100 03/04/19 11:53 Vital Signs Reviewed: Yes Eye Exam: Normal Eyes: Positive: Conjunctiva Clear ENT: Positive: Normal ENT inspection, Hearing grossly normal, Pharynx normal, TMs normal. Negative: Pharyngeal erythema, Tonsillar swelling, Tonsillar exudate Dental Exam: Normal Neck exam: Normal Neck: Positive: Supple, Nontender Respiratory: Positive: Chest non-tender, Lungs clear, Normal breath sounds Cardiovascular: Positive: RRR, No Murmur, Pulses Normal Abdomen Description: Positive: Nontender, No Organomegaly, Soft. Negative: CVA Tenderness (R), CVA Tenderness (L), Distended, Guarding Bowel Sounds: Positive: Present Skin Exam: Normal Throat Pain/Nasal Course/Dx - Differential Dx/Diagnosis Provider Diagnosis: Viral illness Discharge ED - Sign-Out/Discharge Documenting (check all that apply): Patient Departure All imaging exams completed and their final reports reviewed: No Studies - Discharge Plan Condition: Stable Disposition: HOME Patient Education Materials: Viral Syndrome (ED) Forms: *Work Release Referrals: Matt Fink MD [Primary Care Provider] - If Needed - Billing Disposition and Condition Condition: STABLE Disposition: Home
== END 2019-03-04 12:13 | disposition home or self-care (01) ==
LOC: UCCORT 10:46
DX: J02.9 Acute pharyngitis, unspecified (principal); R68.83 Chills (without fever); R53.83 Other fatigue; R11.2 Nausea with vomiting, unspecified; R10.9 Unspecified abdominal pain; Z88.1 Allergy status to other antibiotic agents; Z88.2 Allergy status to sulfonamides; Z87.891 Personal history of nicotine dependence
CPT/HCPCS: 87651; 99211; G0463